=== PATIENT | female | born 1955 | race Caucasian/White ===

== ENCOUNTER 2018-07-26 20:30 | Observation (INO) | payer OTHER, MEDICAID, SELFPAY ==
[2018-07-26 20:42] VITALS: BP 161/95; PULSE 84; RESP 18; TEMP 36.6; O2SAT 99; BMI 25.8
--- NOTE | 2018-07-26 20:57 | DI.CT.S_ITS ---
PROCEDURE: CT HEAD/BRAIN WO CON INDICATIONS: Hallucination TECHNIQUE: Noncontrast 4.5 mm thick angled axial sections acquired from the foramen magnum to the vertex, with coronal and sagittal reformats. For radiation dose reduction, the following was used: automated exposure control, adjustment of mA and/or kV according to patient size. COMPARISON: None. FINDINGS: Image quality: Excellent. CSF spaces: Basal cisterns are patent. No extra-axial fluid collections. The ventricles are symmetric in size and shape. Brain: No intracranial bleeds or masses. There is cerebral volume loss for age, with resultant ventricular and sulcal prominence. There are periventricular and deep white matter chronic small vessel ischemic changes. There is intracranial internal carotid artery atherosclerosis. Skull and face: Left frontal craniotomy. Calvarium and visualized facial bones otherwise appear intact, without suspicious lesions. Sinuses: Visualized sinuses and mastoids are clear. IMPRESSION: No acute intracranial abnormality. Dictated by: Roni Pearl M.D. on 07/26/2018 at 21:42 Approved by: Roni Pearl M.D. on 07/26/2018 at 21:43
--- NOTE | 2018-07-26 21:04 | ED_ITS ---
HPI - Neuro Symptoms/Deficit General Chief Complaint: Neuro Symptoms/Deficit Stated Complaint: HALLUCINATIONS Time Seen by Provider: 07/26/18 20:55 Source: patient and family Mode of arrival: ambulatory Limitations: altered mental status History of Present Illness HPI Narrative: Patient is a 62-year-old female with a known history of cirrhosis , TBI, seizure disorder brought in by her son who is the [id number] for evaluation. Her son states that she has been staying at a intermediate house in [place] since she was released from snf in March of last year. [facility] could no longer stay [facility] because she was having hallucinations. Son states that she has had hallucinations in the past. He states that this has happened to her in the past when her ammonia level was elevated. Patient states that the [place] ?[place] where she is staying are using speakers that they bought and candidate to project words to the city where she is living in. Patient denies suicidality or homicidality. She denies any self-harm. Denies any illicit drug use or alcohol use. She states that she is not currently taking any medications. It does appear that she has been on Dilantin in the past for seizure disorder but has not taken it since she has been in the nursing home system. On Anticoagulants: No Related Data Home Medications Medication Instructions Recorded Confirmed phenytoin sodium extended 300 mg PO HS #0 12/26/16 [Dilantin Extended] Previous Rx's Medication Instructions Recorded lactulose 30 ml PO TID 30 Days #0 day 12/27/16 propranolol 10 mg PO BID #60 tab 12/27/16 Review of Systems Review of Systems Somewhat limited due to her mental condition Constitutional Denies fever(s) and Denies headache(s) Eyes Denies change in vision and Denies diplopia ENT Ears, Nose, Mouth, and Throat: Denies dizziness and Denies headache(s) Cardiovascular Denies chest pain and Denies dyspnea Respiratory Denies dyspnea Gastrointestinal Gastrointestinal: Denies abdominal pain Genitourinary Denies dysuria Musculoskeletal Denies myalgias and Denies arthralgias Integumentary/Breasts Denies rash Neurologic Denies dizziness and Denies headache(s) Psychiatric Denies homicidal ideation and Denies suicidal ideation Comments: Auditory hallucinations Hematologic/Lymphatic Comments: Out on anticoagulation [facility] Medical History Alcoholic liver disease (Acute) Hypertension (Acute) Seizure disorder (Acute) TBI (traumatic brain injury) (Acute) Surgical History Hx of craniotomy (Acute) Social History Smoking Status: Current some day smoker Exam Initial Vital Signs Initial Vital Signs: Vital Signs Temperature 97.9 F 07/26/18 20:42 Pulse Rate 84 07/26/18 20:42 Respiratory Rate 18 07/26/18 20:42 Blood Pressure 161/95 H 07/26/18 20:42 Pulse Oximetry 99 07/26/18 20:42 Const General: cooperative, comfortable, well developed, well groomed and No acute distress Orientation: alert, awake, oriented x3, oriented to person, oriented to place, oriented to time and not confused HENMT Head: normal to inspection and normocephalic Eyes General: appearance normal, both eyes and all related structures Pupils: PERRL EOM: EOM intact bilaterally Resp Effort & Inspection: normal respiratory effort Auscultation: clear to auscultation bilaterally Cardio Rate: regular rate Rhythm: regular rhythm GI Inspection: non-distended Palpation: soft and No firm Skin Lesions: no lesions Rashes: no rashes Neuro General: alert, awake and oriented x3 Cognition: abnormal cognition (Hallucination, tangential) Speech: speech normal Gait: normal gait Motor: muscle tone normal throughout Sensory Exam: no sensory deficits noted Extrem General: normal to inspection and capillary refill normal Psych Appearance: well kempt Speech and Movement: speech and movement normal Mood: not anxious, not manic, No angry and No irritable mood Affect: normal affect Attitude: cooperative Thought Process: tangential Thought Content: hallucinations auditory, no homicidality and suicidality Course Orders Ordered: ED Orders 07/26/18 20:57 CT head/brain wo con Stat Urine Drug Screen, Rapid Stat EKG-12 Lead Stat 07/26/18 21:52 Acetaminophen Stat Ammonia (NH3) Stat Complete Blood Count AUTO DIFF Stat Comprehensive Metabolic Panel Stat Ethanol (ETOH) Stat Lipase Stat Salicylate Stat Thyroid Stimulating Hormone Stat Discontinued Medications Lactulose (Enulose) 20 gm PO NOW ONE Stop: 07/26/18 23:10 Olanzapine (Zyprexa Zydis) 5 mg PO NOW ONE Stop: 07/26/18 23:07 Vital Signs - 8 hr 07/26/18 20:42 07/26/18 21:40 Temperature 97.9 F Pulse Rate 84 76 Respiratory Rate 18 Blood Pressure 161/95 H Blood Pressure [Left Arm] 169/82 H Pulse Oximetry 99 98 MDM - Neuro Symptoms/Deficit Medical Records Attestation: I reviewed the patient's medical records. Lab Data Attestation: I reviewed the patient's lab results. Result diagrams: 07/26/18 21:52 07/26/18 21:52 Lab Results 07/26/18 07/26/18 07/26/18 Range/Units 21:52 21:52 21:52 WBC 5.4 (4.5-11.0) X10^3/uL RBC 4.34 (4.0-5.2) X10^6/uL Hgb 14.2 (12.0-16.0) g/dL Hct 41.4 (36-46) % MCV 95.4 (80-100) fL MCH 32.8 (26-34) PG MCHC 34.4 (30-36) % RDW 18.3 H (11.6-14.8) % Plt Count 89 L (150-400) X10^3/uL Neut % (Auto) 57.0 (50-75) % Lymph % (Auto) 31.0 (25-40) % [place] % (Auto) 9.0 (3-14) % Eos % (Auto) 2.1 (2-4) % Baso % (Auto) 0.9 (0-2) % Neut # (Auto) 3100 (1640-4400) /uL Sodium (137-145) mmol/L Potassium (3.4-5.1) mmol/L Chloride (98-107) mmol/L Carbon Dioxide (22-32) mmol/L BUN (7-17) mg/dL Creatinine (0.52-1.04) mg/dL Estimated GFR (>60) mL/min BUN/Creatinine Ratio (6-22) Glucose (80-110) mg/dL Calcium (8.4-10.2) mg/dL Total Bilirubin (0.2-1.3) mg/dL AST (14-36) IU/L ALT (9-52) IU/L Alkaline Phosphatase (38-126) U/L Ammonia 47.0 H (9-30) umol/L Total Protein (6.3-8.2) g/dL Albumin (3.5-5.0) g/dL Globulin (1.7-4.1) g/dL Albumin/Globulin Ratio (1.0-2.8) Lipase (23-300) U/L TSH (0.47-4.68) uIU/mL Salicylates (<20) mg/dL Acetaminophen < 10 L (10-30) ug/mL Ethyl Alcohol mg/dL 07/26/18 07/26/18 07/26/18 Range/Units 21:52 21:52 21:52 WBC (4.5-11.0) X10^3/uL RBC (4.0-5.2) X10^6/uL Hgb (12.0-16.0) g/dL Hct (36-46) % MCV (80-100) fL MCH (26-34) PG MCHC (30-36) % RDW (11.6-14.8) % Plt Count (150-400) X10^3/uL Neut % (Auto) (50-75) % Lymph % (Auto) (25-40) % [place] % (Auto) (3-14) % Eos % (Auto) (2-4) % Baso % (Auto) (0-2) % Neut # (Auto) (8067-1934) /uL Sodium 142 (137-145) mmol/L Potassium 4.0 (3.4-5.1) mmol/L Chloride 109 H (98-107) mmol/L Carbon Dioxide 24 (22-32) mmol/L BUN 9 (7-17) mg/dL Creatinine 0.40 L (0.52-1.04) mg/dL Estimated GFR > 60.0 (>60) mL/min BUN/Creatinine Ratio 22.5 H (6-22) Glucose 94 (80-110) mg/dL Calcium 10.0 (8.4-10.2) mg/dL Total Bilirubin 2.7 H (0.2-1.3) mg/dL AST 59 H (14-36) IU/L ALT 27 (9-52) IU/L Alkaline Phosphatase 81 (38-126) U/L Ammonia (9-30) umol/L Total Protein 7.2 (6.3-8.2) g/dL Albumin 3.9 (3.5-5.0) g/dL Globulin 3.3 (1.7-4.1) g/dL Albumin/Globulin Ratio 1.2 (1.0-2.8) Lipase 131 (23-300) U/L TSH 0.72 (0.47-4.68) uIU/mL Salicylates < 1.0 (<20) mg/dL Acetaminophen (10-30) ug/mL Ethyl Alcohol < 10 mg/dL Imaging Data CT scan - head: Radiologist's impression: PROCEDURE: CT HEAD/BRAIN WO CON INDICATIONS: Hallucination TECHNIQUE: Noncontrast 4.5 mm thick angled axial sections acquired from the foramen magnum to the vertex, with coronal and sagittal reformats. For radiation dose reduction, the following was used: automated exposure control, adjustment of mA and/or kV according to patient size. COMPARISON: None. FINDINGS: Image quality: Excellent. CSF spaces: Basal cisterns are patent. No extra-axial fluid collections. The ventricles are symmetric in size and shape. Brain: No intracranial bleeds or masses. There is cerebral volume loss for age , with resultant ventricular and sulcal prominence. There are periventricular and deep white matter chronic small vessel ischemic changes. There is intracranial internal carotid artery atherosclerosis. Skull and face: Left frontal craniotomy. Calvarium and visualized facial bones otherwise appear intact, without suspicious lesions. Sinuses: Visualized sinuses and mastoids are clear. IMPRESSION: No acute intracranial abnormality. Dictated by: Roni Pearl M.D. on 07/26/2018 at 21:42 Approved by: Roni Pearl M.D. on 07/26/2018 at 21:43 ECG Data Attestation: I personally reviewed and interpreted this ECG as follows: Prior ECG tracings: not available for review Interpretation: Sinus rhythm Ventricular rate is 78 Normal QRS Normal QTC Nonspecific ST T wave changes MDM Narrative Medical decision making narrative: Patient is calm. She is alert and oriented x3 however does go to in to extensive detail about how she is hearing the speakers that individuals around the city where she is living his speaking with her. She denies any suicidality. Denies any homicidality. No signs of trauma. No signs of seizure. It appears that she is not taking any of her medications. Patient does have an elevated ammonia which could potentially be adding to her presenting problems. Talking with the family at bedside it does appear that in the past their symptoms have gotten worse when her ammonia level has been elevated however does not appear that they resolve when the ammonia level was normal. Unfortunately because of the elevated ammonia she is not medically cleared to be transferred to any mental health facility. Patient was given a Zyprexa here in the emergency department to try to help her with the hallucinations. She was also given oral lactulose. Discussed the case with night internists provider to have her admitted for continued treatment of her elevated lactulose and then further evaluation and disposition. He accepted admission. Discussed admission with the family who expressed understanding and agreement. Discharge Plan Departure Patient Disposition: Admitted As Inpatient Clinical Impression: Hepatic encephalopathy, Auditory hallucination, Altered mental status
[2018-07-26 21:40] VITALS: BP 169/82; PULSE 76; O2SAT 98
[2018-07-26 22:12] LABS: Add Manual Diff / Slide Review NO; Alanine Aminotransferase 27 IU/L (9-52); Albumin 3.9 g/dL (3.5-5.0); Albumin Globulin Ratio 1.2 (1.0-2.8); Alkaline Phosphatase 81 U/L (38-126); Aspartate Aminotransferase 59 IU/L (14-36); BUN Creatinine Ratio 22.5 (6-22); Basophils Percent Auto 0.9 % (0-2); Bilirubin Total 2.7 mg/dL (0.2-1.3); Blood Urea Nitrogen 9 mg/dL (7-17); Carbon Dioxide 24 mmol/L (22-32); Chloride 109 mmol/L (98-107); Eosinophils Percent Auto 2.1 % (2-4); Estimated Glomerular Filt Rate > 60.0 mL/min (>60); Ethanol (ETOH) < 10 mg/dL; Globulin 3.3 g/dL (1.7-4.1); Glucose 94 mg/dL (80-110); HEMOLYSIS 20 (0-50); Hematocrit 41.4 % (36-46); Hemoglobin 14.2 g/dL (12.0-16.0); Mean Corpuscular HGB Conc 34.4 % (30-36); Mean Corpuscular Hemoglobin 32.8 PG (26-34); Mean Corpuscular Volume 95.4 fL (80-100); Neutrophils Absolute Auto 3100 /uL (1500-7000); Platelet Count 89 X10^3/uL (150-400); Red Blood Cell Count 4.34 X10^6/uL (4.0-5.2); Red Cell Distribution Width 18.3 % (11.6-14.8); Sodium 142 mmol/L (137-145); Total Protein 7.2 g/dL (6.3-8.2); White Blood Cell Count 5.4 X10^3/uL (4.5-11.0)
[2018-07-26 22:13] LABS: Salicylate < 1.0 mg/dL (<20)
[2018-07-26 22:21] LABS: Lipase 131 U/L (23-300)
[2018-07-26 22:28] LABS: Acetaminophen < 10 ug/mL (10-30)
[2018-07-26 22:49] LABS: Thyroid Stimulating Hormone 0.72 uIU/mL (0.47-4.68)
[2018-07-26] MEDS: OLANZapine ODT 10 MG TAB 5 MG PO (23:26)
[2018-07-27] VITALS (10 sets, daily range): BP systolic 92–144; BP diastolic 54–85; PULSE 62–75; RESP 16–18; TEMP 36.4–36.7; O2SAT 93–99; BMI 25.8
--- NOTE | 2018-07-27 00:59 | PM.HP.1 ---
History of Present Illness Date Patient Seen: 07/27/18 Time Patient Seen: 01:00 Chief complaint: HALLUCINATIONS Narrative: This is a 62-year-old female patient with a known history of alcoholic liver cirrhosis that is brought in to the ER by her son for hallucinations. The patient has been living in a ?clean and sober home? in [place] and began manifesting hallucinations where upon the staff called the patient's son who holds power of criminal attorney for her stating she can't remain there. Today the patient is describing a machine made in [place] sent to [place] that enhances sound. She states the machine can make you dream, hear things or not think clearly. The patient is not aware of her altered thinking process. Patient was telling the nurse that she hears drums. Patient has a prior history and admission for hepatic encephalopathy manifested by altered mental status and December 2016. The patient was incarcerated for DUI from March 2016 to August 2016. The patient states she has been sober since that time but is no longer taking any medications including lactulose and rifaximin. Patient has additional history traumatic brain injury in 2014 which she fell in the bathroom striking her head on the sink requiring surgery for evacuation of hematoma. Patient does not has a history of epilepsy diagnosed in 2004 and she reports her last generalized seizure was in 2016. She reports numerous ?pre his seizure? episodes where she describes that she could not talk and her muscles tighten up. She reports these episodes last for approximately 1 min the last being 3 days ago. She sustained no recent falls denies alcohol drug use has had no recent complaints of illness, fevers or chills, chest pain, abdominal pain, nausea vomiting, diarrhea or constipation. Patient History Medical History Alcoholic liver disease (Acute) Dislocation of clavicle, left, closed (Acute) Hypertension (Acute) Seizure disorder (Acute) TBI (traumatic brain injury) (Acute) Surgical History Hx of craniotomy (Acute) Family & Social History Tobacco & Substance use: Smoking Status Current some day smoker Substance Use Type does not use Comment: The patient is and has been residing in a ?clean and sober? residential facility with 7 other roommates since incarceration from March 2017 to August 2017. Her father is however mother is 98 and she reports she has been in the hospital several times but has no major medical problems. She has 1 older sister who is in good health. Meds Home Medications Medication Instructions Recorded Confirmed Type propranolol 10 mg PO BID #60 tab 12/27/16 Rx lactulose 60 ml PO TID 07/26/18 History lisinopril 5 mg PO DAILY 07/26/18 07/26/18 History Allergies Allergy/AdvReac Type Severity Reaction Status Date / Time No Known Drug Allergies Allergy Verified 07/26/18 23:42 Review of Systems Review of Systems Constitutional: Denies fevers, chills, sweats, fatigue, good appetite with stable weight Eyes: Positive for floaters left eye, Denies visual changes, diplopia ENT: Complains of intermittent frontal headache, Denies hearing changes, ear pain, no nasal congestion, rhinorrhea, no dysphagia, sore throat or dentalgia, no neck stiffness or pain Respiratory: Positive for smoking cigars, Denies SOB, cough, exertional dyspnea, wheezing Cardiovascular: Denies chest pain, palpitations, orthostatic dizziness, syncope, edema Gastrointestinal: Denies abdominal pain, nausea or vomiting, no reflux or bloating, constipation or diarrhea, denies blood in stool. Genitourinary: Positive for postmenopausal without symptoms denies vaginal discharge, no complains of urinary frequency, burning or urgency, hematuria on voiding Musculoskeletal: Positive for left clavicle dislocation, left hip pain, left knee swelling denies recent falls, weakness, cramps, edema or joint pain Integumentary: denies skin lesions, masses, rashes, bruising, hives, itching or hair loss Neurological: Positive for recurrent episodes of muscular stiffness and difficulty talking denies dizziness, ataxia confusion, numbness or tingling Psychiatric: denies disturbances in thought, attentions or mood, denies substance abuse Endocrine: denies goiter, lethargy, abnormal sweating, and heat/cold intolerance. Heme/lymph: Denies lymphadenopathy, abnormal bleeding or bruising Exam Vital Signs (past 8 hours): - 07/26/18 20:42 07/26/18 21:40 07/27/18 00:48 Temperature 97.9 F 97.6 F Pulse Rate 84 76 75 Respiratory Rate 18 18 Blood Pressure 161/95 H 144/85 H Blood Pressure [Left Arm] 169/82 H Pulse Oximetry 99 98 99 Oxygen Delivery Method Room Air Oxygen Flow Rate 0 Narrative Exam Narrative: General: Well developed, well nourished, in no acute distress. Skin: Warm, dry, pink, no rashes, no visible lesions HEENT: Normocephalic, PERRLA, conjunctiva moist, sclera is anicteric, no ear pain, hearing grossly no sinus tenderness to percussion, no rhinorrhea, oropharynx is moist and pink without lesions or exudate, uvula midline, posterior pharynx without inflammation, no lymphadenopathy Neck: Supple, no masses, thyroid non tender without thyromegaly or nodules, trachea midline, no carotid bruits or JVD Cardiac: Regular rate and rhythm, S1-S2, it is 2/6 systolic murmur auscultated across the precordium, no gallops or rubs, 2+ radial pulse, 1+ posterior tibial pulse, no edema Chest: Symmetrical movement, breathing non labored, nonproductive cough present, BS equal bilateral without coarseness, crackles or wheezes Abdomen: Soft, no tenderness or guarding, no masses or organomegaly, no flank or suprapubic pain, BS normal. Back: Normal curvature, no tenderness to palpation, no CVA tenderness on percussion Extremities: Decreased range of motion left arm, pain on palpation over left greater trochanteric bursa, effusion left knee without warmth or erythema, no crepitus or deformities, strength 5/5 and symmetrical, gait not assessed Neuro: AAOx4, cranial nerves II-XII grossly intact, distal sensation intact to light touch, no paresthesias Psych: Patient manifests altered thought process, delusions, describes auditory hallucinations elements of paranoia, remains cooperative and pleasant Objective Labs Result Diagrams: 07/26/18 21:52 07/26/18 21:52 Labs: Laboratory Results - last 24 hr 07/26/18 07/26/18 07/26/18 21:52 21:52 21:52 WBC 5.4 RBC 4.34 Hgb 14.2 Hct 41.4 MCV 95.4 MCH 32.8 MCHC 34.4 RDW 18.3 H Plt Count 89 L Neut % (Auto) 57.0 Lymph % (Auto) 31.0 [place] % (Auto) 9.0 Eos % (Auto) 2.1 Baso % (Auto) 0.9 Neut # (Auto) 3100 Sodium Potassium Chloride Carbon Dioxide BUN Creatinine Estimated GFR BUN/Creatinine Ratio Glucose Calcium Total Bilirubin AST ALT Alkaline Phosphatase Ammonia 47.0 H Total Protein Albumin Globulin Albumin/Globulin Ratio Lipase TSH Salicylates Acetaminophen < 10 L Ethyl Alcohol 07/26/18 07/26/18 07/26/18 21:52 21:52 21:52 WBC RBC Hgb Hct MCV MCH MCHC RDW Plt Count Neut % (Auto) Lymph % (Auto) [place] % (Auto) Eos % (Auto) Baso % (Auto) Neut # (Auto) Sodium 142 Potassium 4.0 Chloride 109 H Carbon Dioxide 24 BUN 9 Creatinine 0.40 L Estimated GFR > 60.0 BUN/Creatinine Ratio 22.5 H Glucose 94 Calcium 10.0 Total Bilirubin 2.7 H AST 59 H ALT 27 Alkaline Phosphatase 81 Ammonia Total Protein 7.2 Albumin 3.9 Globulin 3.3 Albumin/Globulin Ratio 1.2 Lipase 131 TSH 0.72 Salicylates < 1.0 Acetaminophen Ethyl Alcohol < 10 Assessment & Plan Plan: Assessment/Plan Narrative: 1. Hepatic encephalopathy, acute -elevated ammonia level of 47 -patient has not been taking lactulose or for rifaximin -altered mental processes including delusions and hallucinations similar to manifestation during hospitalization in December 2016 -is unclear whether there is an underlying psychiatric disturbance and cannot be evaluated until ammonia level normalizes. -will restart lactulose 20 g 3 times daily -will restart rifaximin 550 mg twice daily -will request social work consult 2. Hepatic cirrhosis, present on admission, active -bilirubin elevated at 2.7, AST elevated at 59, ALT normal at 27 and alkaline phosphatase of 81 -patient reports remaining sober since August 2017 -tox screen completed in the ER is negative -liver cirrhosis by history -will obtain an INR -will avoid Tylenol aspirin or NSAIDs 3. Hypertension, present on admission, active -blood pressure in the ER was 161/95, on arrival on the floor it was 144/65 -patient does complain of mild headache no focal neurological findings -patient has not been taking her antihypertensives will restart lisinopril 5 mg daily and propranolol 10 mg twice daily 4. Epilepsy, presumed not active -patient describes ?preseizure? recurrent episodes of muscle tension and difficulty speaking occurring for several weeks -patient has not been taking her previously listed medications of Dilantin or Keppra since August of 2017 -episodes have not been witnessed her observed, validity is unclear and may be a function of encephalopathy and can be re-evaluated following normalization of ammonia 5. Traumatic brain injury, stable -patient reports no sequelae since obtaining a subdural hematoma and subsequent craniotomy in 2014. Patient is admitted to observation expected length of stay 1-2 days
--- NOTE | 2018-07-27 02:12 | PC.ADMIT ---
Addendum entered by Mariya Falcon R.N. 07/27/18 02:50: 0245 Attempted two unsuccessful IV starts and EMU FARMER in and tried twice as well. Called ER to see if an FIELD MARKETING MANAGER could try to place IV. Per pt, she is a difficult IV start. At this time, no scheduled IV meds ordered. Original Note: 2105 Admission Note:Pt arrived to room 231 from the ER via wheelchair, she was able to indep transfer herself to the bed. Pt accompanied by her son and his fiance. Pt is oriented to self, date, place and situation. Pt had been having active hallucinations in the ER, at this time pt does not appear to be having hallucinations although is able to give some insight to some recent paranoia she had while at the home she is currently living in in the [place] area. Pt reports pain to her head which sounds like is chronic, declines wanting any meds. Hospitalist in to see pt and orders recieved. Pt oriented to room and call light, belongings other than clothing sent home with her son. Bed alarm on for safety. The patient,Sandra Wadsworth,62 y/o, was given written information regarding hospital policies, unit procedures and contact persons. Patient's smoking status: Current some day smoker. Vital Signs - 8 hr 07/26/18 20:42 07/26/18 21:40 07/27/18 00:48 Temperature 97.9 F 97.6 F Pulse Rate 84 76 75 Respiratory Rate 18 18 Blood Pressure 161/95 H 144/85 H Blood Pressure [Left Arm] 169/82 H Pulse Oximetry 99 98 99
[2018-07-27] MEDS: LACTULOSE 20 GM/30 ML SOLUTION PO ×4 (02:21→21:24)
[2018-07-27 05:08] LABS: BUN Creatinine Ratio 22.5 (6-22); Blood Urea Nitrogen 9 mg/dL (7-17); Calcium 9.5 mg/dL (8.4-10.2); Carbon Dioxide 24 mmol/L (22-32); Chloride 110 mmol/L (98-107); Estimated Glomerular Filt Rate > 60.0 mL/min (>60); Glucose 83 mg/dL (80-110); HEMOLYSIS < 15 (0-50); Potassium 3.6 mmol/L (3.4-5.1); Sodium 142 mmol/L (137-145)
[2018-07-27 05:27] LABS: INR 1.4 (0.9-1.3); Prothrombin Time 16.6 SECONDS (10.1-12.7)
[2018-07-27] MEDS: PROPRANOLOL 10 MG TABLET PO ×2 (08:43→21:25)
[2018-07-27] MEDS: LISINOPRIL 5 MG TABLET PO (08:43)
[2018-07-27] MEDS: ONDANSETRON 4 MG ODT PO (08:43)
--- NOTE | 2018-07-27 11:28 | PM.EVENT ---
Date Patient Seen: 07/27/18 Patient is a 62-year-old female admitted to the hospital for portosystemic encephalopathy. Chart is reviewed and patient has been seen and examined. She is awake and alert today. She is not hallucinating. Will continue with a max and lactulose. Will repeat her labs in the morning. Further recommendations will be made pending results of above.
[2018-07-27 13:55] LABS: Appearance Urine UA CLEAR; Bilirubin Urine UA NEGATIVE (NEGATIVE); Color Urine UA YELLOW; Glucose Urine UA TRACE g/dL (Negative); Ketones Urine UA 1+ (NEGATIVE); Leukocyte Esterase Urine UA 1+ (NEGATIVE); Nitrite Urine UA NEGATIVE (Negative); Occult Blood Urine UA NEGATIVE (Negative); Protein Urine UA TRACE (Negative); Specific Gravity Urine UA 1.025 (1.000-1.035)
[2018-07-27 14:02] LABS: Urine Amphetamines Negative (Negative); Urine Barbiturates Negative (Negative); Urine Benzodiazepines Negative (Negative); Urine Cocaine Negative (Negative); Urine MDMA Negative (Negative); Urine Methadone Negative (Negative); Urine Methamphetamines Negative (Negative); Urine Morphine/Opi cutoff 2000 Negative (Negative); Urine Oxycodone Negative (Negative); Urine Phencyclidine Negative (Negative); Urine THC Negative (Negative); Urine Tricyclic Antidepressant Negative (Negative)
[2018-07-27 14:31] LABS: Bacteria Urine Many (>30); Hyaline Casts Urine 5-10/LPF; RBC Urine 0-1/HPF (0-5/HPF); Squamous Epithelial Cell Urine 5-10 /HPF; WBC Urine 10-30/HPF (0-5/HPF)
[2018-07-27 14:32] LABS: Culture Indicated Urine Cult Not Indicated
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
[2018-07-27] MEDS: SODIUM CHLORIDE 0.9% FLUSH 10 ML IV (21:25)
[2018-07-27] MEDS: RIFAXIMIN 550 MG TABLET PO (21:25)
--- NOTE | 2018-07-27 22:48 | PC.NURSE ---
Addendum entered by Marcela Romano R.N. 07/27/18 23:00: 2300-new orders from Dr. Flores to [facility] from worklist. Original Note: shift- Pt slept most of shift, pleasant and cooperative with care. A/O x3, 95%RA, LS clear, BP 99/54, 69, reports BP baseline is low. BT+, denies nausea, SBA BRP 200mL orange urine out. RAC SL, ate yogurt and drank cranberry roseanne, and water. No needs or concerns this shift, call light in reach and bed alarm on for safety, and understands to call when need to go to BR.
[2018-07-28] VITALS (7 sets, daily range): BP systolic 95–111; BP diastolic 53–68; PULSE 53–62; RESP 18; TEMP 36.3–36.8; O2SAT 94–96
--- NOTE | 2018-07-28 04:04 | PC.NURSE ---
Pt A&OX3. LS: clear, 96%RA. BTX4 active. denied n/v. denied pain. no hallucinations. Pt sleepy. She got up to the BR-SBA No bowel movement yet. call light in reach. bed alarm active.
[2018-07-28 05:27] LABS: BUN Creatinine Ratio 22.5 (6-22); Blood Urea Nitrogen 9 mg/dL (7-17); Calcium 9.4 mg/dL (8.4-10.2); Carbon Dioxide 24 mmol/L (22-32); Chloride 109 mmol/L (98-107); Estimated Glomerular Filt Rate > 60.0 mL/min (>60); Glucose 85 mg/dL (80-110); HEMOLYSIS < 15 (0-50); Sodium 139 mmol/L (137-145)
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
[2018-07-28] MEDS: PROPRANOLOL 10 MG TABLET PO (09:19)
[2018-07-28] MEDS: RIFAXIMIN 550 MG TABLET PO (09:19)
[2018-07-28] MEDS: LACTULOSE 20 GM/30 ML SOLUTION PO ×2 (09:20→14:22)
[2018-07-28] MEDS: SODIUM CHLORIDE 0.9% FLUSH 10 ML IV (09:20)
--- NOTE | 2018-07-28 13:28 | CM.DPNOTE ---
DC/ Social Work Note: Reviewed chart. Contacted son Agus P# [phone] this morning to understand if pt could return to her clean and sober house in [place] ? Agus explains it's unlikely that pt can return because of these episodes where she has hallucinations and can have some behavior disturbances. This AUTO DRIVER contacted Melinda Holt, P# [phone], home and business supervisor blueprinting and photocopy of [facility] [employer]. She explained that the tenants of her house are already fragile and Sandra's few episodes of being disruptive have been unhealthy for the house. Melinda discussed the lack of housing resources in [place]. w/this AUTO DRIVER and inevitably decided to give pt another try. Melinda strongly encouraged Sandra to get connected w/ an outpt MH program to stabilize her and hoped Sandra would be compliant taking the medication prescribed upon DC today. Placed call to [facility] this morning to ask about bed availability; no beds available but pt encouraged to screen in and call back of she still needed the resource. Spoke again w/son Agus who admitted he is fairly overwhelmed trying to research other housing options for pt. This AUTO DRIVER shared that Melinda welcomes Sandra back today but alternative options should be researched. Agus hopeful his mom will get connected w/ intensive outpt MH services soon and asked if pt made an appt yet through [facility], [facility], or ? Agus or his gf will pick pt up to take her home later this afternoon. This AUTO DRIVER requested we be notified if p/u will be later than 1600. Spoke w/pt this afternoon, updated w/plan. Pt sleepy. Asked if she made an outpt appt for MH? Pt states she's been busy getting as much sleep as possible today. Encouraged pt to make the appt today, she states she will make the appt tomorrow once home. Reiterated that pt needs to make the appt herself in order to set a realistic time and day and arrange transportation, pt agrees. Updated ESTRELLITA Oh w/ above. P: DC back home to clean and sober living. Outpt MH f/u if pt arranges. Mariya Gonzalez, AUTO DRIVER
== END 2018-07-28 20:10 | disposition home or self-care (01) ==
LOC: ED 23:21 → AC 07-27 07:26
PROVIDERS: Admitting Provider Nurse Practitioner Adult Health; Emergency Provider Emergency Medicine; Family Provider Nurse Practitioner Gerontology; PCP Nurse Practitioner Gerontology; Visit Provider Nurse Practitioner Adult Health
DX: K72.00 Acute and subacute hepatic failure without coma (principal); R44.0 Auditory hallucinations; G40.909 Epilepsy, unspecified, not intractable, without status epilepticus; Z87.820 Personal history of traumatic brain injury; I10 Essential (primary) hypertension; F17.210 Nicotine dependence, cigarettes, uncomplicated; K70.30 Alcoholic cirrhosis of liver without ascites
CPT/HCPCS: 36415; 70450; 80048; 80053; 80305; 80320; 80329; 81001; 82140; 83690; 84443; 85025; 85610; 93005; 99282; 99285; G0378; G0480

== ENCOUNTER 2018-08-07 19:49 | Emergency (ER) | payer OTHER, MEDICAID, SELFPAY ==
[2018-07-27 00:37] VITALS: BMI 25.8
[2018-08-07 19:54] VITALS: BP 155/75; PULSE 62; RESP 16; TEMP 36.5; O2SAT 98; BMI 25.0
--- NOTE | 2018-08-07 20:36 | DI.CT.S_ITS ---
PROCEDURE: CT HEAD/BRAIN WO CON INDICATIONS: headache, hx of hemorrhage TECHNIQUE: Noncontrast 4.5 mm thick angled axial sections acquired from the foramen magnum to the vertex, with coronal and sagittal reformats. For radiation dose reduction, the following was used: automated exposure control, adjustment of mA and/or kV according to patient size. COMPARISON: [facility], CT, CT HEAD/BRAIN WO CON, 07/26/2018, 20:54. FINDINGS: Image quality: Excellent. CSF spaces: Basal cisterns are patent. No extra-axial fluid collections. The ventricles are symmetric in size and shape. Brain: No intracranial bleeds or masses. There is cerebral volume loss for age, with resultant ventricular and sulcal prominence. There are periventricular and deep white matter chronic small vessel ischemic changes. There is intracranial internal carotid artery atherosclerosis. Skull and face: Prior left frontal craniotomy is again seen. No acute calvarial or facial bone abnormality. Sinuses: Visualized sinuses and mastoids are clear. IMPRESSION: 1. No CT evidence of acute intracranial pathology. No significant changes from previous study. 2. Post craniotomy changes in left frontal region. Age-appropriate atrophy and [id number] periventricular white matter microangiopathic changes. Dictated by: Mo Samuel M.D. on 08/07/2018 at 21:17 Approved by: Mo Samuel M.D. on 08/07/2018 at 21:19
[2018-08-07 20:50] LABS: Add Manual Diff / Slide Review NO; Basophils Absolute Auto 0 /uL (0-100); Basophils Percent Auto 0.8 % (0-2); Eosinophils Absolute Auto 200 /uL (0-450); Eosinophils Percent Auto 4.4 % (2-4); Hematocrit 38.9 % (36-46); Hemoglobin 13.2 g/dL (12.0-16.0); Lymphocytes Absolute Auto 1800 /uL (1100-4500); Lymphocytes Percent Auto 33.8 % (25-40); Mean Corpuscular HGB Conc 33.9 % (30-36); Mean Corpuscular Hemoglobin 32.9 PG (26-34); Monocytes Absolute Auto 500 /uL (0-900); Monocytes Percent Auto 8.9 % (3-14); Neutrophils Absolute Auto 2700 /uL (1500-7000); Neutrophils Percent Auto 52.1 % (50-75); Platelet Count 88 X10^3/uL (150-400); Red Blood Cell Count 4.01 X10^6/uL (4.0-5.2); Red Cell Distribution Width 17.6 % (11.6-14.8); White Blood Cell Count 5.2 X10^3/uL (4.5-11.0)
[2018-08-07 20:50] LABS: RBC Urine None Seen (0-5/HPF); WBC Urine None Seen (0-5/HPF)
[2018-08-07 20:51] LABS: Appearance Urine UA CLEAR; Bilirubin Urine UA NEGATIVE (NEGATIVE); Color Urine UA YELLOW; Glucose Urine UA NEGATIVE (Negative); Ketones Urine UA NEGATIVE (NEGATIVE); Leukocyte Esterase Urine UA TRACE (NEGATIVE); Nitrite Urine UA NEGATIVE (Negative); Occult Blood Urine UA NEGATIVE (Negative); Protein Urine UA NEGATIVE (Negative); Urobilinogen Urine UA 0.2 E.U./dL (0.2); pH Urine UA 7.5 (4.5-8.0)
[2018-08-07 20:55] LABS: Alanine Aminotransferase 50 IU/L (9-52); Albumin 3.5 g/dL (3.5-5.0); Albumin Globulin Ratio 1.2 (1.0-2.8); Alkaline Phosphatase 101 U/L (38-126); Aspartate Aminotransferase 70 IU/L (14-36); Bilirubin Total 2.1 mg/dL (0.2-1.3); Blood Urea Nitrogen 8 mg/dL (7-17); Calcium 9.4 mg/dL (8.4-10.2); Carbon Dioxide 24 mmol/L (22-32); Chloride 112 mmol/L (98-107); Estimated Glomerular Filt Rate > 60.0 mL/min (>60); Globulin 2.9 g/dL (1.7-4.1); Glucose 93 mg/dL (80-110); HEMOLYSIS 33 (0-50); Potassium 4.2 mmol/L (3.4-5.1); Sodium 143 mmol/L (137-145); Total Protein 6.4 g/dL (6.3-8.2)
[2018-08-07 21:03] LABS: Bacteria Urine Occasional (0-1); Culture Indicated Urine Cult Not Indicated; Squamous Epithelial Cell Urine 0-1 /HPF
[2018-08-07 21:25] VITALS: BP 147/72; PULSE 61; RESP 16; O2SAT 98
--- NOTE | 2018-08-07 21:25 | ED.AMS ---
HPI - Altered Mental Status General Chief Complaint: Altered Mental Status Stated Complaint: states having Hallucinations Time Seen by Provider: 08/07/18 20:20 Source: patient Mode of arrival: ambulatory Limitations: no limitations History of Present Illness HPI narrative: patient is a 62-year-old female brought in by her son for hallucinations. Patient states that she had intracranial hemorrhage a few years ago since then she has had auditory hallucinations as. This is not uncommon for her. She denies any suicidal or homicidal thoughts. she has never been on medications for it. The son says hallucinations were really bad tonight and she was even seeing things which is unusual. patient states that she has a headache and feels like pressure is building up in her head as she feels the bleeding may be back. She actually was discharge here 10 days ago with hepatic encephalopathy. She has been taking her lactulose she is able to answer question she is awake and alert. Son concerned that her ammonia level might be elevated. She was recently incarcerated and is now living in [facility] she has difficulty staying in the [facility] and the son is his trying to care for her. She was seen by mental health like way in billing him, which is where she lives. Not able to get in a voluntary hospitalization due to insurance. At this time patient refuses any sort of is voluntary hospitalization and does not appear to have debilitating paranoia or hallucinations. She denies weakness, numbness, tingling, persistent vomiting, visual changes, fever chills abdominal pain Related Data Previous Rx's Medication Instructions Recorded lactulose 20 gm PO TID 90 Days ml 07/28/18 lisinopril 5 mg PO DAILY #30 tab MDD 5 mg 07/28/18 propranolol 10 mg PO BID 30 Days #60 tab 07/28/18 rifaximin [Xifaxan] 550 mg PO BID 30 Days #60 tab 07/28/18 Allergies Allergy/AdvReac Type Severity Reaction Status Date / Time No Known Drug Allergies Allergy Verified 07/26/18 23:42 Review of Systems Review of Systems ROS Unobtainable: All systems reviewed & are unremarkable except as noted in HPI and below Constitutional Denies chills, Denies fever(s), Denies lethargy and Denies weakness Cardiovascular Denies chest pain, Denies irregular heart rhythm, Denies lightheadedness, Denies palpitations and Denies orthopnea Gastrointestinal Gastrointestinal: Denies abdominal pain, Denies change in bowel habits, Denies diarrhea, Denies nausea and Denies vomiting Musculoskeletal Denies back pain, Denies muscle weakness, Denies numbness and Denies tingling Integumentary/Breasts Denies pruritus, Denies erythema, Denies rash and Denies wounds Neurologic Denies confusion, Denies numbness, Denies tingling and Denies weakness Psychiatric Denies anxiety, Denies confusion, Denies depression, Denies homicidal ideation and Denies suicidal ideation Endocrine Denies palpitations Exam Initial Vital Signs Initial Vital Signs: Vital Signs Temperature 97.7 F 08/07/18 19:54 Pulse Rate 62 08/07/18 19:54 Respiratory Rate 16 08/07/18 19:54 Blood Pressure 155/75 H 08/07/18 19:54 Pulse Oximetry 98 08/07/18 19:54 GENERAL: cooperative alert oriented x3 no acute distress HEENT: Head atraumatic,EOMI, pupils reactive, face symmetric, neck is supple CARDIOVASCULAR: Regular rate and rhythm without murmurs, rubs or gallops. RESPIRATORY: Breath sounds equal bilaterally, no wheezes rales or rhonchi. ABDOMEN: Soft, nontender. Normoactive bowel sounds all 4 quadrants. No guarding or rebound. EXTREMITIES: Normal range of motion, no clubbing or edema. Neurovascularly intact NEUROLOGICAL: Alert and oriented x4.Normal gait and speech. Cranial nerves II through XII grossly intact. Good [id number], good [id number], strength equal bilaterally, no dysarthria or aphasia, sensation in tact to soft touch bilaterally, no visual changes, no facial droop SKIN: Warm, dry, no laceration, no petechiae, no rashes or lesions. Course Orders Ordered: ED Orders 08/07/18 20:15 Urinalysis and Microscopic Stat 08/07/18 20:35 Complete Blood Count AUTO DIFF Stat Comprehensive Metabolic Panel Stat 08/07/18 20:36 CT head/brain wo con Stat Vital Signs - 8 hr 08/07/18 19:54 08/07/18 21:25 08/07/18 21:33 Temperature 97.7 F Pulse Rate 62 61 60 Respiratory Rate 16 16 16 Blood Pressure 155/75 H Blood Pressure [Left Arm] 147/72 H 136/78 Pulse Oximetry 98 98 97 MDM - Altered Mental Status Lab Data Attestation: I reviewed the patient's lab results. Result diagrams: 08/07/18 20:35 08/07/18 20:35 Lab Results 08/07/18 08/07/18 08/07/18 Range/Units 20:15 20:35 20:35 WBC 5.2 (4.5-11.0) X10^3/uL RBC 4.01 (4.0-5.2) X10^6/uL Hgb 13.2 (12.0-16.0) g/dL Hct 38.9 (36-46) % MCV 97.0 (80-100) fL MCH 32.9 (26-34) PG MCHC 33.9 (30-36) % RDW 17.6 H (11.6-14.8) % Plt Count 88 L (150-400) X10^3/uL Neut % (Auto) 52.1 (50-75) % Lymph % (Auto) 33.8 (25-40) % Crockett % (Auto) 8.9 (3-14) % Eos % (Auto) 4.4 H (2-4) % Baso % (Auto) 0.8 (0-2) % Neut # (Auto) 2700 (6908-7166) /uL Lymph # (Auto) 1800 (6082-6227) /uL Crockett # (Auto) 500 (0-900) /uL Eos # (Auto) 200 (0-450) /uL Baso # (Auto) 0 (0-100) /uL Sodium 143 (137-145) mmol/L Potassium 4.2 (3.4-5.1) mmol/L Chloride 112 H (98-107) mmol/L Carbon Dioxide 24 (22-32) mmol/L BUN 8 (7-17) mg/dL Creatinine 0.40 L (0.52-1.04) mg/dL Estimated GFR > 60.0 (>60) mL/min BUN/Creatinine Ratio 20.0 (6-22) Glucose 93 (80-110) mg/dL Calcium 9.4 (8.4-10.2) mg/dL Total Bilirubin 2.1 H (0.2-1.3) mg/dL AST 70 H (14-36) IU/L ALT 50 (9-52) IU/L Alkaline Phosphatase 101 (38-126) U/L Total Protein 6.4 (6.3-8.2) g/dL Albumin 3.5 (3.5-5.0) g/dL Globulin 2.9 (1.7-4.1) g/dL Albumin/Globulin Ratio 1.2 (1.0-2.8) Urine Color Yellow Urine Appearance Clear Urine pH 7.5 (4.5-8.0) Ur Specific Igo 1.020 (1.000-1.035) Urine Protein Negative (Negative) Urine Glucose (UA) Negative (Negative) g/dL Urine Ketones Negative (NEGATIVE) Urine Occult Blood Negative (Negative) Urine Nitrate Negative (Negative) Urine Bilirubin Negative (NEGATIVE) Urine Urobilinogen 0.2 (0.2) E.U./dL Ur Leukocyte Esterase Trace H (NEGATIVE) Urine RBC None seen (0-5/HPF) Urine WBC None seen (0-5/HPF) Ur Squamous Epith Cells 0-1 /hpf Urine Bacteria Occasional (0-1) D (None) Ur Culture Indicated? Cult not indicated Urine Dip Bedside Urine Glucose Negative Bedside Urine Bilirubin - Negative Bedside Urine Ketone - Negative Urine Specific Igo 1.015 Bedside Urine Occult Blood - Negative Bedside Urine pH 7.5 Bedside Urine Protein - Negative Bedside Urine Urobilinogen - Negative Bedside Urine Nitrite - Negative Bedside Urine Leukocytes - Negative Esterase Imaging Data CT scan - head: Radiologist's impression: PROCEDURE: CT HEAD/BRAIN WO CON INDICATIONS: headache, hx of hemorrhage TECHNIQUE: Noncontrast 4.5 mm thick angled axial sections acquired from the foramen magnum to the vertex, with coronal and sagittal reformats. For radiation dose reduction, the following was used: automated exposure control, adjustment of mA and/or kV according to patient size. COMPARISON: [facility], CT, CT HEAD/BRAIN WO CON, 07/26/2018, 20:54. FINDINGS: Image quality: Excellent. CSF spaces: Basal cisterns are patent. No extra-axial fluid collections. The ventricles are symmetric in size and shape. Brain: No intracranial bleeds or masses. There is cerebral volume loss for age, with resultant ventricular and sulcal prominence. There are periventricular and deep white matter chronic small vessel ischemic changes. There is intracranial internal carotid artery atherosclerosis. Skull and face: Prior left frontal craniotomy is again seen. No acute calvarial or facial bone abnormality. Sinuses: Visualized sinuses and mastoids are clear. IMPRESSION: 1. No CT evidence of acute intracranial pathology. No significant changes from previous study. 2. Post craniotomy changes in left frontal region. Age-appropriate atrophy and [id number] periventricular white matter microangiopathic changes. Dictated by: Mo Samuel M.D. on 08/07/2018 at 21:17 MDM Narrative Medical decision making narrative: at this time patient is awake alert oriented x3 does not appear to have an elevated ammonia level therefore does not checked. She admits to having auditory hallucinations however she does not seem greatly disabled by them. No suicidal homicidal thoughts. Her son is 1 who seems most frustrated because she continually gets [facility]. At this time she does not need any kind of involuntary criteria. She is willing to see someone about the hallucinations. I called [facility] to schedule next day appointment. They will call her tomorrow and schedule a time and check in with her. They are aware that she with in billing him and she will need to go to the [place] office. Discharge Plan Departure Patient Disposition: Home Clinical Impression: Headache Discharge Date/Time: 08/07/18 21:49 Interventions: ED Discharge Assessment Last Done: 08/07/18 21:46 Instructions: DI for Headache Activity Restrictions/Additional Instructions: *You have been diagnosed with headache, hallucinations *What to do: YOU WILL RECEIVE A PHONE CALL AT 1:00 P.M. FROM [facility] TO HELP SCHEDULE AN APPOINTMENT FOR YOU ON WEDNESDAY *Continue to take medications as directed *Follow up with your primary care provider in 2-3 days *Return to ER if you should have severe hallucinations, suicidal or homicidal thoughts, any new, worsening or concerning symptoms Prescriptions: No Action propranolol 10 mg Tablet 10 mg PO BID 30 Days Qty: 60 RF: 0 rifaximin [Xifaxan] 550 mg Tablet 550 mg PO BID 30 Days Qty: 60 RF: 0 lactulose 20 gram/30 mL Solution 20 gm PO TID 90 Days RF: 0 lisinopril 5 mg Tablet 5 mg PO DAILY MDD 5 mg Qty: 30 RF: 0 Referrals: Mariya Geller ARNP [Primary Care Provider] -
[2018-08-07 21:33] VITALS: BP 136/78; PULSE 60; RESP 16; O2SAT 97
== END 2018-08-07 21:49 | disposition home or self-care (01) ==
PROVIDERS: Emergency Provider Emergency Medicine; Family Provider Nurse Practitioner Gerontology; PCP Nurse Practitioner Gerontology
DX: R51 Headache (principal); R44.0 Auditory hallucinations
CPT/HCPCS: 36591; 70450; 80053; 81001; 81003; 85025; 99282; 99284